=== PATIENT | female | born 1955 | race Caucasian/White ===

== ENCOUNTER 2020-06-24 12:04 | Emergency (ER) | payer BC ==
--- NOTE | 2020-06-24 12:43 | EDM.PDOC ---
ED HPI GENERAL MEDICAL PROBLEM - General Chief Complaint: Flank Pain Stated Complaint: BACK PAIN Time Seen by Provider: 06/24/20 12:43 - History of Present Illness INITIAL COMMENTS - FREE TEXT/NARRATIVE: 65-year-old female presents the emergency room with back pain. According to the patient this started on Monday. The patient denies any injury or precipitating event. Patient has not had any burning or frequency with urination. At times she has flank pain and at times this pain extends into her left hip. But also confusing as sometimes it goes across her low back minimally to the right side. She is not had any fevers or chills when the pain gets bad she does have some nausea with it. Patient almost came in early this morning because of severe discomfort. She does not have a history of pain like this in the past no history of kidney stones. Patient has not experienced any loss of bowel or bladder control with this back pain. Left Flank Pain Score (Numeric/FACES): 4 - Related Data Allergies Allergy/AdvReac Type Severity Reaction Status Date / Time No Known Allergies Allergy Verified 06/24/20 12:42 Home Meds: Home Meds Cyclobenzaprine [Flexeril] 10 mg PO BEDTIME #7 tab 06/24/20 [Rx] Meclizine [Antivert] 25 mg PO BEDTIME 06/24/20 [History] Meloxicam 15 mg PO DAILY 06/24/20 [History] Metoprolol Succinate [Toprol XL] 25 mg PO DAILY 06/24/20 [History] Simvastatin [Zocor] 40 mg PO BEDTIME 06/24/20 [History] ED ROS GENERAL - Review of Systems Review Of Systems: See Below Constitutional: Reports: No Symptoms. Denies: Fever, Chills HEENT: Reports: No Symptoms Respiratory: Reports: No Symptoms Cardiovascular: Reports: No Symptoms Endocrine: Reports: No Symptoms GI/Abdominal: Reports: Nausea. Denies: Abdominal Pain, Constipation, Diarrhea, Vomiting : Reports: No Symptoms Musculoskeletal: Reports: Back Pain Skin: Reports: No Symptoms Neurological: Reports: No Symptoms ED EXAM, GI/ABD - Physical Exam Exam: See Below Exam Limited By: No Limitations General Appearance: Alert, No Apparent Distress Head: Atraumatic, Normocephalic Neck: Normal Inspection, Supple, Non-Tender, Full Range of Motion. No: Lymphadenopathy (L), Lymphadenopathy (R) Respiratory/Chest: No Respiratory Distress, Lungs Clear, Normal Breath Sounds Cardiovascular: Regular Rate, Rhythm, No Edema, No Murmur GI/Abdominal Exam: Normal Bowel Sounds, Soft, Non-Tender Back Exam: Normal Inspection, Other (Palpation really does not elicit any pain. She is got some vague discomfort in the upper lumbar lower thoracic left wall). No: CVA Tenderness (L), CVA Tenderness (R) Extremities: Normal Inspection, No Pedal Edema Neurological: Alert, Oriented, Normal Cognition Course - Vital Signs Last Recorded V/S: Last Vital Signs Temp 36.8 C 06/24/20 12:46 Pulse 87 06/24/20 12:46 Resp 16 06/24/20 12:46 BP 126/90 06/24/20 12:46 Pulse Ox 99 06/24/20 12:46 - Orders/Labs/Meds Orders: Active Orders 24 hr Category Date Time Status Abdomen Pelvis wo Cont [CT] Stat Exams 06/24/20 13:37 Taken Labs: Laboratory Tests 06/24/20 06/24/20 06/24/20 Range/Units 13:15 13:15 13:15 WBC 4.87 (3.98-10.04) K/mm3 RBC 4.39 (3.98-5.22) M/mm3 Hgb 14.6 (11.2-15.7) gm/dl Hct 44.4 (34.1-44.9) % MCV 101.1 H (79.4-94.8) fl MCH 33.3 H (25.6-32.2) pg MCHC 32.9 (32.2-35.5) g/dl RDW Std Deviation 48.3 H (36.4-46.3) fL Plt Count 169 L (182-369) K/mm3 MPV 11.1 (9.4-12.3) fl Neut % (Auto) 50.5 (34.0-71.1) % Lymph % (Auto) 36.8 (19.3-51.7) % Donley % (Auto) 10.1 (4.7-12.5) % Eos % (Auto) 1.8 (0.7-5.8) Baso % (Auto) 0.6 (0.1-1.2) % Neut # (Auto) 2.46 (1.56-6.13) K/mm3 Lymph # (Auto) 1.79 (1.18-3.74) K/mm3 Donley # (Auto) 0.49 H (0.24-0.36) K/mm3 Eos # (Auto) 0.09 (0.04-0.36) K/mm3 Baso # (Auto) 0.03 (0.01-0.08) K/mm3 Sodium 140 (136-145) mEq/L Potassium 3.7 (3.5-5.1) mEq/L Chloride 104 (98-107) mEq/L Carbon Dioxide 25 (21-32) mEq/L Anion Gap 14.7 (5-15) BUN 14 (7-18) mg/dL Creatinine 0.9 (0.55-1.02) mg/dL Est Cr Clr Drug Dosing 56.08 mL/min Estimated GFR (MDRD) > 60 (>60) mL/min BUN/Creatinine Ratio 15.6 (14-18) Glucose 89 (80-115) mg/dL Calcium 9.9 (8.5-10.1) mg/dL Total Bilirubin 0.4 (0.2-1.0) mg/dL AST 27 (15-37) U/L ALT 26 (14-59) U/L Alkaline Phosphatase 69 (46-116) U/L Total Protein 7.2 (6.4-8.2) g/dl Albumin 4.0 (3.4-5.0) g/dl Globulin 3.2 gm/dL Albumin/Globulin Ratio 1.3 (1-2) Urine Color Light yellow (Yellow) Urine Appearance Clear (Clear) Urine pH 7.0 (5.0-8.0) Ur Specific Sherwood 1.015 (1.005-1.030) Urine Protein Negative (Negative) Urine Glucose (UA) Negative (Negative) Urine Ketones Negative (Negative) Urine Occult Blood Trace-intact H (Negative) Urine Nitrite Negative (Negative) Urine Bilirubin Negative (Negative) Urine Urobilinogen 0.2 (0.2-1.0) Ur Leukocyte Esterase Negative (Negative) Urine RBC Not seen (0-5) /hpf Urine WBC 0-5 (0-5) /hpf Ur Epithelial Cells 0-5 (0-5) /hpf Urine Bacteria Not seen (FEW) /hpf Urine Mucus Rare (FEW) /hpf Meds: Medications Discontinued Medications Generic Name Dose Route Start Last Admin Trade Name Bereket PRN Reason Stop Dose Admin Fentanyl 50 mcg 06/24/20 14:39 06/24/20 14:48 Sublimaze IVPUSH 06/24/20 14:40 50 mcg ONETIME ONE Administration Ondansetron HCl 4 mg 06/24/20 14:40 06/24/20 14:48 Zofran IVPUSH 06/24/20 14:41 4 mg ONETIME ONE Administration - Re-Assessments/Exams Free Text/Narrative Re-Assessment/Exam: 06/24/20 13:55 I will check labs I am concerned about the possibility of a kidney stone we will check a CT KUB. At this point the patient does not want anything for the pain until she knows for certain what is causing the pain. 06/24/20 14:40 The patient's pain is became suddenly worse and now she wants something for pain. We will give her 50 mcg of fentanyl. 06/24/20 16:12 Microscopic hematuria on her labs CT evaluation is negative other than she has what appears to be a benign adrenal adenoma. No evidence of kidney stone hydronephrosis or obstruction. Urinalysis is not consistent with a infection. I suspect this is a low back strain of some sort. Discussed different medical management options for this the patient would like to try Tylenol. And we will put her at nighttime Flexeril to see if this helps. Departure - Departure Time of Disposition: 16:21 Disposition: Home, Self-Care 01 Clinical Impression: Back pain, Abdominal pain - Discharge Information Referrals: France Greenwood NP [Primary Care Provider] - Forms: ED Department Discharge Additional Instructions: Return to the emergency room with any questions problems or worsening symptoms. Try Tylenol every 6 hours as needed for pain take 650 mg or up to 1000 mg every 6 hours do not exceed 4000 mg in a 24-hour period. You have been started on Flexeril take 1 every evening. Allow 12 hours after using this medication before driving or returning to work. Follow-up in the clinic on Monday or early next week for recheck. Sepsis Event Note (ED) - Focused Exam Vital Signs: Vital Signs Temp Pulse Resp BP Pulse Ox 06/24/20 12:46 36.8 C 87 16 126/90 99 - My Orders Last 24 Hours: My Active Orders 06/24/20 13:37 Abdomen Pelvis wo Cont [CT] Stat - Assessment/Plan Last 24 Hours: My Active Orders 06/24/20 13:37 Abdomen Pelvis wo Cont [CT] Stat
[2020-06-24] MEDS ORDERED: fentaNYL 100 MCG/2 ML SDV IVPUSH ONE (14:39)
[2020-06-24] MEDS ORDERED: Ondansetron 4 MG/2 ML SDV IVPUSH ONE (14:40)
--- NOTE | 2020-06-24 16:41 | CT ---
"PROCEDURE INFORMATION: Exam: CT Abdomen And Pelvis Without Contrast Exam date and time: 06/24/2020 1:59 PM Age: 65 years old Clinical indication: Abdominal pain; Patient HX: Flank pain TECHNIQUE: Imaging protocol: Computed tomography of the abdomen and pelvis without contrast. COMPARISON: No relevant prior studies available. FINDINGS: Lungs: Bibasilar consolidation is present, consistent with mild atelectasis. Liver: There are multiple simple hepatic cysts. The remainder of the liver parenchyma is normal. Gallbladder and bile ducts: Normal. No calcified stones. No ductal dilation. Pancreas: The pancreas is normal. Spleen: The spleen is normal. Adrenal glands: A 15 mm focal hypodense mass in the left adrenal gland is consistent in appearance and density with a benign adrenal adenoma. The right adrenal gland is normal. Kidneys and ureters: The kidneys are morphologically normal. There are no signs of calculi or hydronephrosis. Stomach and bowel: The GI tract has normal course, caliber and morphology. Appendix: The appendix is not definitively seen, there are no findings suspicious for appendicitis. Intraperitoneal space: There is no evidence of intraperitoneal / pathologic air collections. There is no evidence of free intraperitoneal or pelvic fluid. Vasculature: There is mild atherosclerotic calcifications of the abdominal aorta and its branches, no sign of occlusion or aneurysm. Lymph nodes: There is no evidence of lymphadenopathy. Urinary bladder: The bladder is normal. Reproductive: The uterus is normal. JONATHAN LATHMA | Final Radiology Report CONFIDENTIALITY STATEMENT This report is intended only for use by the referring physician, and only in accordance with law. If you received this in error, call [phone]. Page 2 of 2 Bones/joints: The L4 vertebral body listhesis 4 mm relative to L5.The lumbar spine demonstrates mild degenerative changes at multiple levels. The vertebral facet joints demonstrate moderate degenerative hypertrophy and sclerosis.The pelvis and sacrum are morphologically normal and anatomically aligned. Soft tissues: Unremarkable. Other findings: . . IMPRESSION: 1. No sign of renal calculi/obstructive uropathy. 2. Incidental left adrenal adenoma. COMMENTS: Consistent with the [employer]'s Incidental Findings Committee white paper (J Am Abraham Radiol 2017): For any incidental adrenal lesion greater than 1 cm but less than 4 cm classified in this report as benign, likely benign, or containing fat (including classification as an adenoma or myelolipoma), no follow-up imaging is recommended per consensus recommendations based on imaging criteria. Further lab evaluation could be pursued if warranted based on clinical findings. Thank you for allowing us to participate in the care of your patient. Dictated and Authenticated by: Benjamín Cabrera MD 06/24/2020 3:39 PM Central Time ([place] & [place]) DIANNE"
== END 2020-06-24 16:43 | disposition home or self-care (01) ==
LOC: JD.ED 12:04
DX: R10.9 Unspecified abdominal pain (principal); M54.6 Pain in thoracic spine; M54.5 Low back pain; Z79.899 Other long term (current) drug therapy
CPT/HCPCS: 36415; 74176; 80053; 81001; 85025; 96374; 96375; 99284; J2405; J3010

== ENCOUNTER 2020-06-26 09:48 | Emergency (ER) | payer BC ==
[2020-06-26] MEDS ORDERED: HYDROmorphone 0.5 MG/0.5 ML Syringe IM ONE (11:30)
--- NOTE | 2020-06-26 11:37 | EDM.PDOC ---
ED HPI GENERAL MEDICAL PROBLEM - General Chief Complaint: Back Pain or Injury Stated Complaint: L SIDE ABD AND BACK PAIN Time Seen by Provider: 06/26/20 11:02 Source of Information: Reports: Patient, RN Notes Reviewed History Limitations: Reports: No Limitations - History of Present Illness INITIAL COMMENTS - FREE TEXT/NARRATIVE: Patient is a 65-year-old female who presents to the ED for her ongoing left lower abdomen and left hip pain. Patient notes she was seen in this ER 3 days ago, she had a CT performed, to rule out a kidney stone in nature, and this was negative. She was sent home with Tylenol and Flexeril. She states she has been using Tylenol because she is on meloxicam. She is not been using the Flexeril as she states it does not seem to be doing anything. She also notes that she try going to the chiropractor, but he was not able to help give her much pain relief either. She states she has not had any trauma, slips trips or falls to the area. She has not tried to follow-up with her primary care provider. She is denying any sort of fevers or chills, cough or shortness of breath, nausea vomiting or diarrhea. She is not complaining of any urinary discomfort, loss of bowel or bladder control as well. She is denying any numbness or tingling into her feet. When she is in the room, she is holding her left hip, and stating this is the source of the pain. She states it does seem to radiate down the leg a little, and then down into her groin and low back. She has not had low back pain before. She states this is a sharp shooting pain. Left Flank Pain Score (Numeric/FACES): 10 - Related Data Allergies Allergy/AdvReac Type Severity Reaction Status Date / Time No Known Allergies Allergy Verified 06/24/20 12:42 Home Meds: Home Meds Meclizine [Antivert] 25 mg PO BEDTIME 06/24/20 [History] Meloxicam 15 mg PO DAILY 06/24/20 [History] Metoprolol Succinate [Toprol XL] 25 mg PO DAILY 06/24/20 [History] Simvastatin [Zocor] 40 mg PO BEDTIME 06/24/20 [History] Acetaminophen/oxyCODONE [Percocet 325-5 MG] 1 each PO Q6H PRN #20 tab 06/26/20 [Rx] Orphenadrine [Norflex] 100 mg PO BID PRN #20 tab 06/26/20 [Rx] predniSONE 20 mg PO ASDIRECTED #15 tab 06/26/20 [Rx] Past Medical History HEENT History: Reports: Cataract Cardiovascular History: Reports: High Cholesterol, Other (See Below) Other Cardiovascular History: palpitations Musculoskeletal History: Reports: Arthritis - Past Surgical History HEENT Surgical History: Reports: Cataract Surgery Social & Family History - Tobacco Use Tobacco Use Status *Q: Current Every Day Tobacco User Years of Tobacco use: 50 Packs/Tins Daily: 1 ED ROS GENERAL - Review of Systems Review Of Systems: Comprehensive ROS is negative, except as noted in HPI. ED EXAM,LOWER BACK PAIN/INJURY - Physical Exam Exam: See Below Exam Limited By: No Limitations General Appearance: Alert, WD/WN, No Apparent Distress Respiratory/Chest: No Respiratory Distress, Lungs Clear, Normal Breath Sounds, No Accessory Muscle Use, Chest Non-Tender Cardiovascular: Normal Peripheral Pulses, Regular Rate, Rhythm, No Murmur GI/Abdominal: Normal Bowel Sounds, Soft, Non-Tender, No Distention, No Mass Neurological: Alert, Normal Mood/Affect, Normal Dorsiflexion, Normal Plantar Flexion, No Motor/Sensory Deficits, Oriented x 3, Straight Leg Raise (L) (slightly positive, she states that this did hurt in the same way it has been hurting). No: Straight Leg Raise (R), Saddle Anesthesia Psychiatric: Normal Affect, Normal Mood Skin Exam: Warm, Dry, Intact, Normal Color, No Rash Course - Vital Signs Last Recorded V/S: Last Vital Signs Temp 97.6 F 06/26/20 10:16 Pulse 84 06/26/20 10:16 Resp 16 06/26/20 10:16 BP 159/87 H 06/26/20 10:16 Pulse Ox 98 06/26/20 10:16 - Orders/Labs/Meds Meds: Medications Discontinued Medications Generic Name Dose Route Start Last Admin Trade Name Freq PRN Reason Stop Dose Admin Hydromorphone HCl 0.5 mg 06/26/20 11:30 06/26/20 11:44 Dilaudid IM 06/26/20 11:31 0.5 mg ONETIME ONE Administration - Re-Assessments/Exams Free Text/Narrative Re-Assessment/Exam: 06/26/20 11:36 Patient presents to the ED for evaluation of her hip pain. In talking with the patient, she is walking around the room and holding her left hip, and points to this area when I ask her what is causing her pain. 06/26/20 12:12 Patient states that medication has helped with her pain management at this time she is able to sit more comfortably. I have offered to order an outpatient MRI so she can follow-up with her primary care provider, get her something for pain, prednisone and have her take Norflex instead of Flexeril as the Flexeril did not seem to do much for her. Patient is okay with this plan at this time. Departure - Departure Time of Disposition: 12:14 Disposition: Home, Self-Care 01 Condition: Good Clinical Impression: Left hip pain - Discharge Information *PRESCRIPTION DRUG MONITORING PROGRAM REVIEWED*: Yes *COPY OF PRESCRIPTION DRUG MONITORING REPORT IN PATIENT CARLOS: No Instructions: Musculoskeletal Pain Referrals: France Greenwood NP [Primary Care Provider] - Forms: ED Department Discharge Additional Instructions: You were evaluated in the ER today for your ongoing left hip/lower groin pain. Etiology of this pain is still quite unclear, however it is highly likely that this is more of a soft tissue abnormality; like an inflamed bursa sack or nerve aggravation. You have been given an outpatient MRI order for your low back and left hip to further evaluate the area in question. Our radiology department will call you to schedule you for this appointment, please expect this to be sometime early next week. If you do not hear from their department by Monday, I recommend you call the hospital at [phone], and ask for radiology. You were given a couple different prescriptions, you should take the prednisone, 1 tab 2 times a day for 5 days, and then 1 tab once a day x5 days. Please do this until it is gone. Please hold your meloxicam while taking the prednisone. You were given a prescription for a strong pain medication, oxycodone/acetaminophen 5/325mg, please take 1 tab every 6 hours as needed for pain not relieved by Tylenol or ibuprofen alone. Please note this medication does contain Tylenol in it, so do not take more than 4000 mg in a 24-hour time span. These medications can be addictive, so please take as few as possible to achieve adequate pain control. These meds can also be quite constipating, recommend that you increase your oral fluid intake and take a stool softener like MiraLAX while taking these medications. Do not drive while taking this medication. You were given a prescription for a muscle relaxer called Norflex, please take 1 tab 2 times a day as needed for further muscle spasms. Do not take the Flexeril while using the Norflex. You will need to follow-up with your primary care provider, France Greenwood for results of your MRI. Please allow a few days after your MRI has been completed, so that your care provider can get these results and go over them with you. Please return to the ER at any time if your symptoms change or worsen. Sepsis Event Note (ED) - Evaluation Sepsis Screening Result: No Definite Risk - Focused Exam Vital Signs: Vital Signs Temp Pulse Resp BP Pulse Ox 06/26/20 10:16 97.6 F 84 16 159/87 H 98
== END 2020-06-26 12:50 | disposition home or self-care (01) ==
LOC: JD.ED 09:48
DX: M25.552 Pain in left hip (principal); E78.00 Pure hypercholesterolemia, unspecified; M19.90 Unspecified osteoarthritis, unspecified site; F17.210 Nicotine dependence, cigarettes, uncomplicated; Z79.899 Other long term (current) drug therapy
CPT/HCPCS: 96372; 99283; J1170

== ENCOUNTER 2025-01-09 08:41 | Emergency (ER) | payer BC | END 2025-01-09 11:05 | disposition home or self-care (01) | LOC: JD.ED 08:41 | DX: G62.9 Polyneuropathy, unspecified (principal); E78.00 Pure hypercholesterolemia, unspecified; Z90.49 Acquired absence of other specified parts of digestive tract; F17.200 Nicotine dependence, unspecified, uncomplicated; Z79.899 Other long term (current) drug therapy | CPT/HCPCS: 73502-26-RT; 73502-RT; 99283 ==